=== PATIENT | female | born 1960 | race Caucasian/White ===

== ENCOUNTER → 2023-07-21 | Emergency (ER) | payer OTHER ==
--- NOTE | 2023-07-21 20:44 | RAD REPORT ---
EXAM DESCRIPTION: RAD - Hand Left 3 View - 07/21/2023 8:34 pm CLINICAL HISTORY: PAIN COMPARISON: <Comparisons> FINDINGS: Diffuse osteopenia. Mild impacted fracture of the base of the proximal phalanx of the fift h finger.
--- NOTE | 2023-07-21 21:17 | ER ---
Nurse's Notes [facility] Name: Zully Allison Age: 63 yrs Sex: Female : 1960 Arrival Date: 07/21/2023 Time: 19:47 Bed 12 Private MD: Diagnosis: Displaced fracture of proximal phalanx of left little finger;Elevated blood-pressure reading, without diagnosis of hypertension Presentation: 07/21 20:06 Chief complaint: Patient states: Pain to 5th digit of left hand. Pt states that her dog cm10 ran into her hand causing the pain. Coronavirus screen: Vaccine status: Patient reports being unvaccinated. Client denies travel out of the [place] in the last 14 days. Ebola Screen: Patient denies travel to an Ebola-affected area in the 21 days before illness onset. No symptoms or risks identified at this time. Initial Sepsis Screen: Does the patient meet any 2 criteria? No. Patient's initial sepsis screen is negative. Does the patient have a suspected source of infection? No. Patient's initial sepsis screen is negative. Risk Assessment: Do you want to hurt yourself or someone else? Patient reports no desire to harm self or others. Onset of symptoms was July 21, 2023. 20:06 Method Of Arrival: Ambulatory cm10 20:06 Acuity: OZIEL 4 cm10 Triage Assessment: 20:09 General: Appears in no apparent distress. comfortable, Behavior is calm, cooperative. cm10 Pain: Complains of pain in dorsal aspect of middle phalanx of left little finger and dorsal aspect of proximal phalanx of left little finger. Historical: - Allergies: 20:08 No Known Allergies; cm10 - Home Meds: 20:08 None [Active]; cm10 - PMHx: 20:08 Cervical Cancer; cm10 - Immunization history:: Adult Immunizations unknown. - Social history:: Smoking status: Patient denies any tobacco usage or history of. Screenin:45 [facility] ED Fall Risk Assessment (Adult) History of falling in the last 3 months, bp including since admission No falls in past 3 months (0 pts). Abuse screen: Denies threats or abuse. Denies injuries from another. Nutritional screening: No deficits noted. Tuberculosis screening: No symptoms or risk factors identified. Assessment: 20:45 General: SEE TRIAGE NOTE. Musculoskeletal: Reports pain in left hand. bp Vital Signs: 20:06 Pulse 75; Resp 18; Temp 97.3(TE); Pulse Ox 99% on R/A; Weight 88.45 kg; Height 5 ft. 7 cm10 in. ; Pain 6/10; 20:09 BP 189 / 94; cm10 21:19 BP 159 / 87; Pulse 67; Resp 16; Pulse Ox 99% ; bp 20:06 Body Mass Index 30.54 (88.45 kg, 170.18 cm) cm10 20:06 Pain Scale: Adult cm10 ED Course: 19:52 Patient arrived in ED. rg4 19:59 Davie Valentino PA is PHCP. cp 19:59 Dave Carrington MD is Attending Physician. cp 20:08 Triage completed. cm10 20:09 Arm band placed on Patient placed in an exam room, on a stretcher. cm10 20:36 XRAY Hand LEFT 3 View In Process Unspecified. EDMS 20:45 Lul Monsivais, RN is Primary Nurse. bp 20:45 Patient has correct armband on for positive identification. bp 21:18 No provider procedures requiring assistance completed. Patient did not have IV access bp during this emergency room visit. Orthoglass splint: Ulnar gutter/Boxer splint applied on left forearm. Administered Medications: 21:17 Not Given (Patient Refused): mg PO once bp 21:17 Not Given (Patient Refused): [id number] mg PO once bp Medication: 20:45 VIS not applicable for this client. bp Outcome: 21:17 Discharge ordered by MD. cp 21:40 Discharged to home ambulatory, bp 21:40 Condition: stable 21:40 Discharge instructions given to patient, Instructed on discharge instructions, follow up and referral plans. medication usage, Demonstrated understanding of instructions, follow-up care, medications, splint care, Prescriptions given X 1, 21:41 Patient left the ED. bp Signatures: Dispatcher [employer] EDMS Davie Valentino PA PA cp Garcia, Rubi rg4 Lul Monsivais, RN RN Yolanda Layne RN RN cm10
--- NOTE | 2023-07-21 21:17 | EDPHYS ---
Physician Documentation [facility] Name: Zully Allison Age: 63 yrs Sex: Female : 1960 Arrival Date: 07/21/2023 Time: 19:47 Bed 12 Private MD: ED Physician Dave Carrington HPI: 07/21 21:00 This 63 yrs old Female presents to ER via Ambulatory with complaints of Hand Injury. cp 21:00 The patient or guardian reports injury, pain, swelling, tenderness. The complaints cp affect the left fifth finger and fifth metacarpal. Context: The problem was sustained at home, resulted from a direct blow, from head of large dog. Onset: The symptoms/episode began/occurred today. Associated signs and symptoms: The patient has no apparent associated signs or symptoms. Historical: - Allergies: 20:08 No Known Allergies; cm10 - Home Meds: 20:08 None [Active]; cm10 - PMHx: 20:08 Cervical Cancer; cm10 - Immunization history:: Adult Immunizations unknown. - Social history:: Smoking status: Patient denies any tobacco usage or history of. ROS: 21:05 MS/extremity: Positive for pain, swelling, tenderness, of the left hand, cp 21:05 Constitutional: Negative for body aches, chills, fever, poor PO intake, cp 21:05 Respiratory: Negative for cough, shortness of breath, wheezing, 21:05 Neck: Negative for pain with movement, pain at rest, cp 21:05 Abdomen/GI: Negative for abdominal pain, nausea, vomiting, and diarrhea, 21:05 Back: Negative for pain at rest, pain with movement, 21:05 Neuro: Negative for altered mental status, headache, weakness, 21:05 All other systems are negative, Exam: 21:10 Constitutional: The patient appears in no acute distress, alert, awake, well developed, cp well nourished, uncomfortable, 21:10 Head/Face: Normocephalic, atraumatic. cp 21:10 Cardiovascular: Rate: normal, Rhythm: regular, 21:10 Respiratory: the patient does not display signs of respiratory distress, Respirations: normal, no use of accessory muscles, no retractions, labored breathing, is not present, 21:10 Musculoskeletal/extremity: Extremities: grossly normal except: noted in the mcp and proximal phalanx of left fifth finger: ecchymosis, pain, swelling, tenderness, ROM: limited active range of motion, in the left fifth finger, Perfusion: the extremity is normally perfused throughout, the left hand Sensation intact. Vital Signs: 20:06 Pulse 75; Resp 18; Temp 97.3(TE); Pulse Ox 99% on R/A; Weight 88.45 kg; Height 5 ft. 7 cm10 in. ; Pain 6/10; 20:09 BP 189 / 94; cm10 21:19 BP 159 / 87; Pulse 67; Resp 16; Pulse Ox 99% ; bp 20:06 Body Mass Index 30.54 (88.45 kg, 170.18 cm) cm10 20:06 Pain Scale: Adult cm10 Procedures: 22:00 Splinting: Splint applied to left hand using Orthoglass splint, ulna gutter type. cp applied by nurse. Examined by me, post splint application: neurovascular intact, Patient tolerated well. MDM: 20:10 Patient medically screened. cp 21:00 Differential diagnosis: dislocation, open fracture, closed fracture, contusion. cp 21:17 Data reviewed: vital signs, nurses notes, radiologic studies, plain films. cp 21:17 Independent interpretation of the following test(s) in the Emergency Department X-Ray: cp My interpretation is images of left hand show fracture proximal phalanx left fifth finger. Counseling: I had a detailed discussion with the patient and/or guardian regarding the historical points, exam findings, and any diagnostic results supporting the discharge/admit diagnosis, radiology results, the need for outpatient follow up, a hand specialist, to return to the emergency department if symptoms worsen or persist or if there are any questions or concerns that arise at home. Response to treatment: the patient's symptoms have mildly improved after treatment, and as a result, I will discharge patient. 07/21 20:10 Order name: XRAY Hand LEFT 3 View; Complete Time: 21:17 cp 07/21 21:01 Order name: Splint - Ulnar Gutter; Complete Time: 21:17 cp Administered Medications: 21:17 Not Given (Patient Refused): [id number] mg PO once bp 21:17 Not Given (Patient Refused): [id number] mg PO once bp Disposition: 07/22 03:05 Co-signature as Attending Physician, Dave Carrington MD I agree with the assessment sp4 and plan of care. I reviewed the patient's care provided by the Advanced Practice Provider and agree with the diagnosis and treatment plan. Disposition Summary: 07/21/23 21:17 Discharge Ordered Notes: Location: Home cp Problem: new cp Symptoms: have improved cp Condition: Stable cp Diagnosis - Displaced fracture of proximal phalanx of left little finger cp - Elevated blood-pressure reading, without diagnosis of hypertension cp Followup: cp - With: Private Physician - When: Hand Surgeon - Reason: Recheck today's complaints Discharge Instructions: - Discharge Summary Sheet cp - Finger Fracture, Adult cp - Form - Blood Pressure Record Sheet cp - How to Take Your Blood Pressure cp Forms: - Medication Reconciliation Form cp - Thank You Letter cp - Antibiotic Education cp - Prescription Opioid Use cp - Patient Portal Instructions cp - Leadership Thank You Letter cp Prescriptions: - Diclofenac Sodium 75 mg Oral Tablet Sustained Release - take 1 tablet ORAL route 2 times per day; 30 tablet; Refills: 0, Product cp Selection Permitted Signatures: Dispatcher [employer] EDMS Davie Valentino PA PA cp Potepalov, Sergey, MD MD sp4 Yolanda Rao RN RN cm10 Lul Monsivais RN bp
[2023-07-21 22:20] VITALS: BP 159/87; TEMP 97.3; O2SAT 99
== END ==
LOC: ER 19:47
PROC: 2W3KX1Z Immobilization of Left Finger using Splint (ICD-10-PCS; principal; 2023-07-21)
DX: S62.617A Displaced fracture of proximal phalanx of left little finger, initial encounter for closed fracture (principal); R03.0 Elevated blood-pressure reading, without diagnosis of hypertension
CPT/HCPCS: 99283